=== PATIENT | male | born 1990 | race Two or more races ===

== ENCOUNTER → 2024-03-23 | Outpatient (CLI) | payer OTHER, SELFPAY ==
[2024-03-23 12:14] LABS: HIV (1&2) Antibody Rapid Non-Reactive
[2024-03-23 12:20] LABS: Syphilis Nonreactive (Nonreactive)
[2024-03-23 12:56] LABS: Hepatitis C Antibody Non Reactive (Non React)
[2024-03-24 09:06] LABS: Chlamydia trachomatis PCR Negative (Not Detect); Neisseria Gonorrhoeae DNA PCR Negative (Not Detect); Trichomonas Negative (Negative)
== END | disposition home or self-care (01) ==
LOC: COPL 10:58
PROVIDERS: PCP Family Medicine; Referring Provider Family Medicine; Visit Provider Family Medicine
DX: Z11.3 Encounter for screening for infections with a predominantly sexual mode of transmission (principal)
CPT/HCPCS: 36415; 86703; 86780; 86803; 87491; 87591; 87661